=== PATIENT | female | born 1935 | race Caucasian/White ===

== ENCOUNTER 2017-01-19 07:09 | Day surgery (SDC) | payer OTHER ==
[2017-01-18 14:29] VITALS: BMI 23.3
--- NOTE | 2017-01-18 16:16 | HP ---
- Patient Scheduled date of Surgery: 01/19/17 Scheduled Surgical Procedure: Phacoemulsification and cataract extraction with PCIOL Affected Eye: Left Chief Complaint (Indication for surgery): Decreased vision affecting ADLs - Ocular History Other Eye History: Other (none) Eye Medications: cipro Previous Eye Surgery: s/p ce/pciol OD - Medical History Illnesses: Asthma, Hypertension, Other (afib) Current Medications: Ambulatory Orders Albuterol Sulfate [Proair Hfa -] 1 - 2 inh PO PRN PRN 02/11/15 Apixaban [Eliquis] 5 mg PO BID 02/11/15 Metoprolol Succinate [Toprol Xl -] 50 mg PO DAILY 02/11/15 Montelukast Na [Singulair -] 10 mg PO HS 02/11/15 Allergies/Adverse Reactions: Allergies Allergy/AdvReac Type Severity Reaction Status Date / Time No Known Drug Allergies Allergy Verified 01/18/17 14:30 Ocular Examination - Best Corrected Visual Acuity Distance: Right eye: 20/30 Distance: Left eye: 20/70 - External/Slit Lamp Examination Abnormalities: none - Intraocular Pressure Intraocular Pressure - Right eye: 13 Intraocular Pressure-Left eye: 13 - Lens Lens: 3+ NS 1 + cortical - Vitreous/Retina Vitreous/Retina: c:d 0.2 m mottled v/p wnl - Special Examination M - Right eye: +0.50-0.25 x 170 M - Left eye: -0.75 K - Right eye: 41.5/42.25 x 90 K - Left eye: 42.5/42.5 AL - Left eye: 23.07 IOL bag: +23.0d hoya 251 IOL sulcus: +22.0 d hoya 252 IOL AC: +19.0 d MTA 4uo - Plan Plan: Phacoemulsification and cataract extraction - IOL Left eye Post-hospital care will be provided in office on: 01/20/17
--- NOTE | 2017-01-18 16:16 | HP ---
History & Physical Update - History History: No Change - Physical Physical: No Change - Assessment Assessment: No Change - Plan Plan: No Change
[~2017-01-19 07:09] MED LIST: ACETAMINOPHEN 325 MG TABLET (FP) PO PRN; CIPROFLOXACIN HCL 0.3% OPHTH 2.5ML BOTTLE OP SCH; DICLOFENAC SODIUM 0.1% OPHTHALMIC 2.5ML BOTTLE OP SCH; PHENYLEPHRINE 2.5% OPHTH SOLN 15 ML BOTTLE OP SCH; TOBRAMYCIN 0.3% OPHTH OINT 3.5 GM OS ONE; TROPICAMIDE 1% OPHTH SOLN 15 ML BOTTLE OP SCH
[2017-01-19] MEDS: PHENYLEPHRINE 2.5% OPHTH SOLN 15 ML BOTTLE ONE ×3 (07:30→07:54)
[2017-01-19] MEDS: DICLOFENAC SODIUM 0.1% OPHTHALMIC 2.5ML BOTTLE ONE ×3 (07:30→07:54)
[2017-01-19] MEDS: CIPROFLOXACIN 0.3% EYE DROPS 5 ML BOTTLE ONE ×3 (07:30→07:54)
[2017-01-19] MEDS: TROPICAMIDE 1% OPHTH SOLN 15 ML BOTTLE ONE ×3 (07:30→07:55)
[2017-01-19] MEDS ORDERED: MIDAZOLAM HCL 2 MG/2 ML SINGLE DOSE VIAL ONE (08:28)
[2017-01-19] MEDS ORDERED: LIDOCAINE HCL 2% JELLY (5 ML/TUBE) TP ONE (08:32)
[2017-01-19] MEDS ORDERED: POVIDONE-IODINE 5% OPHTHALMIC PREP 30 ML SOLUTION OS ONE (08:36)
[2017-01-19] MEDS ORDERED: LIDOCAINE HCL 1% PRESERVATIVE FREE - 30ML VIAL IO ONE (08:42)
[2017-01-19] MEDS ORDERED: BSS (NA/CA/MG/K) BALANCED SALT SOLUTION OPHTH SOLN 15 ML BOTTLE IO ONE (08:42)
[2017-01-19] MEDS ORDERED: CHONDROITIN SU A/HYALUR SOD 1 KIT IO ONE (08:43)
[2017-01-19] MEDS ORDERED: EPINEPHrine/PF 1 MG/1 ML (1:1,000) AMPULE SQ ONE (08:45)
[2017-01-19] MEDS ORDERED: TOBRAMYCIN 0.3% OPHTH OINT 3.5 GM OS ONE (09:03)
--- NOTE | 2017-01-19 09:49 | OP ---
DATE OF OPERATION: 01/19/2017 PREOPERATIVE DIAGNOSIS: Cataract, left eye. POSTOPERATIVE DIAGNOSIS: Cataract, left eye. PROCEDURE: Phacoemulsification and cataract extraction with insertion of posterior chamber intraocular lens, left eye. SURGEON: Doris Webb MD DIRECTOR SELECTION AND ADMINISTRATION: None. ANESTHESIA: Topical. ANESTHESIOLOGIST: Luz Maria Mattson MD OPERATIVE PROCEDURE: The patient received 2% lidocaine gel and was gently sedated and prepped and draped in the usual sterile fashion so as to expose only the left eye. Ophthalmic Betadine was instilled into the inferior fornix. The lashes were taped out of the surgical field. An eyelid speculum was placed into the left eye. A paracentesis was made in inferior clear cornea at the limbus, and 0.5 mL of nonpreserved lidocaine 1% was injected into the anterior chamber. Viscoelastic material was then instilled into the anterior chamber via the paracentesis. A 2.4-mm keratome was then used to create the main incision in temporal clear cornea at the limbus. A continuous curvilinear capsulorrhexis was performed using a cystotome and Utrata forceps. Hydrodissection of the lens cortex was performed using BSS on a cannula until the nucleus was noted to be freely rotating. The phacoemulsification tip was then inserted via the main wound and used to sculpt 2 perpendicular grooves into the lens nucleus. The nucleus was crackled into 4 quadrants. Each quadrant was individually phacoemulsified in the iris plane. The remaining cortical material was then aspirated using irrigation and aspiration port. The capsular bag was inflated using Provisc, and a preloaded Hoya lens model 251, power +23.0 diopters was injected into the capsular bag. It was centered using a Sinskey hook. The residual viscoelastic material was removed from the anterior chamber using irrigation and aspiration. The wound edges were hydrated using BSS. The wound was tested for leakage. It was found to be watertight. Therefore, TobraDex ointment was placed in the eye. The speculum was removed from the eye, and the eyelid was closed. A sterile dressing and shield were placed over the eye, and the patient was transferred to the recovery room in stable condition, told to follow up in 1 day. DORIS WEBB M.D. [id number]
--- NOTE | 2017-01-19 09:56 | OP ---
Ophthalmology Operative Note Pre-Operative Diagnosis: Cataract Affected Eye: Left Operation: Phacoemulsification and cataract extraction with PCIOL Findings: cataract left eye Sidewalk Inspector: None Anesthesiologist: Luz Maria Mattson Anesthesia: Topical Specimens Removed: none Estimated blood loss: none Operative Report Dictated: Yes
[2017-01-19 10:29] VITALS: BP 143/74; PULSE 68; TEMP 97.8
== END 2017-01-19 10:30 | disposition home or self-care (01) ==
LOC: JASU-SURG 07:09
PROVIDERS: ATTEND Ophthalmology
PROC: 08RK3JZ Replacement of Left Lens with Synthetic Substitute, Percutaneous Approach (ICD-10-PCS; principal; 2017-01-19 08:30)
DX: H26.9 Unspecified cataract (principal)